=== PATIENT | female | born 1955 | race Caucasian/White ===

== ENCOUNTER → 2021-08-18 | Outpatient (CLI) | payer OTHER | LOC: EXRD 09:28 | DX: M79.671 Pain in right foot (principal); M81.0 Age-related osteoporosis without current pathological fracture | CPT/HCPCS: 73620 ==

== ENCOUNTER → 2021-09-14 | Outpatient (CLI) | payer OTHER | LOC: MAMO 12:59 → EXRD 12:59 → MAMO 14:30 | DX: Z12.31 Encounter for screening mammogram for malignant neoplasm of breast (principal); M81.0 Age-related osteoporosis without current pathological fracture | CPT/HCPCS: 77063; 77067; 77080 ==